=== PATIENT | male | born 1945 | race Caucasian/White ===

== ENCOUNTER 2020-12-27 10:49 | Emergency (ER) | payer OTHER, BC ==
[~2020-12-27] VITALS: Ht 180.3 cm; Wt 83.9 kg
[2020-12-27] MEDS ORDERED: ARICEPT10 M1 PO (10:57)
[2020-12-27] MEDS ORDERED: BUSPIRONE HCL10 MG PO (10:57)
[2020-12-27] MEDS ORDERED: XYZAL5 MG PO (10:57)
[2020-12-27] MEDS ORDERED: MELATONIN3 M1 PO (10:57)
[2020-12-27] MEDS ORDERED: NAMENDA 10 MG T10 MG PO (10:58)
[2020-12-27] MEDS ORDERED: OXYBUTYNIN 5 MG5 M2 PO (10:58)
[2020-12-27] MEDS ORDERED: OLANZAPINE ODT5 MG PO (10:58)
[2020-12-27 11:06] LABS: ABSOLUTE NEUTROPHILS 5.9 thou/uL (1.4-8.2); BASOPHILS 0.5 % (0.0-2.0); EOSINOPHILS 0.5 % (0.0-3.0); HEMATOCRIT 44.1 % (42.0-52.0); HEMOGLOBIN 14.5 gm/dL (14.0-18.0); LYMPHOCYTES 18.6 % (24.0-44.0); MCH 31.6 pg (26.0-34.0); MCHC 32.9 g/dL (28.0-37.0); MCV 96.1 fL (80.0-100.0); MONOCYTES 7.6 % (1.0-8.0); PLATELET COUNT 152 thou/uL (150-400); POLYS 72.8 % (36.0-66.0); RBC 4.59 mil/uL (4.50-6.00); RDW 13.9 % (10.5-14.5); WBC 8.1 thou/uL (4.0-11.0)
[2020-12-27 11:12] LABS: CALCIUM 8.5 mg/dL (8.5-10.1); CREATININE 0.8 mg/dL (0.7-1.3); POTASSIUM 3.9 mmol/L (3.5-5.1)
[2020-12-27 11:19] LABS: ALBUMIN 3.1 g/dL (3.4-5.0); DIRECT BILIRUBIN 0.2 mg/dL (<0.1-0.2); TOTAL BILIRUBIN 0.8 mg/dL (0.2-1.0); TOTAL PROTEIN 6.7 g/dL (6.4-8.2)
[2020-12-27 11:58] LABS: URINE BILIRUBIN NEGATIVE (Negative); URINE BLOOD 1+ (Negative); URINE CLARITY CLEAR; URINE COLOR YELLOW; URINE GLUCOSE-RANDOM* NEGATIVE (Negative); URINE KETONES TRACE (Negative); URINE LEUKOCYTES-REFLEX NEGATIVE (Negative); URINE NITRITE-REFLEX NEGATIVE (Negative); URINE PROTEIN (DIPSTICK) NEGATIVE (Negative); URINE SPECIFIC GRAVITY 1.015 (1.005-1.035)
--- NOTE | 2020-12-27 12:05 | EKG ---
[address] [address] ELECTROCARDIOGRAM REPORT Name: VICKI LINDSAY Room #: [facility].#: [id number] Admission: Attend Phys: Discharge: Date of : 45 Report #: [id number] [facility] ED Test Date: 2020-12-27 Test Time: 11:03:21 Pat Name: VICKI LINDSAY Department: Room: Gender: Hydrology Teacher: cody patterson : 1945 Requested By: Patricia Orozco Order Number: [id number] MD: Raymundo Vázquez Measurements Intervals [place] Rate: 82 P: 53 [place]: 173 QRS: -34 QRSD: 158 T: 21 QT: 431 QTc: 504 Interpretive Statements Sinus rhythm Paired ventricular premature complexes Sinus pause Right bundle branch block No previous ECG available for comparison Electronically Signed On 12-27-2020 12:05:07 CDT by Raymundo Vázquez [email or web address] <ELECTRONICALLY SIGNED> By: Raymundo Vázquez MD, [facility] 12/27/20 1205 1103 1103 Raymundo Vázquez MD, FACC /EPI
[2020-12-27 12:06] LABS: AMP/METHAMP Negative (Negative); BARBITURATES Negative (Negative); BENZODIAZEPINES Negative (Negative); COCAINE Negative (Negative); METHADONE Negative (Negative); OPIATES Negative (Negative); PCP Negative (Negative)
[2020-12-27 12:09] LABS: SQUAMOUS 0-3 Few /LPF (0-3)
[2020-12-27 12:10] LABS: BACTERIA-REFLEX 1-9 Few /HPF (None Seen); CASTS None Seen /LPF (None Seen); CRYSTALS None Seen /LPF (None Seen); URINE RBC 3-10 Few /HPF (NONE SEEN); URINE WBC-REFLEX 0-5 Rare /HPF (0-5)
[2020-12-27 14:49] VITALS: BP 150/80
== END 2020-12-27 17:06 ==
LOC: ER 10:49
PROVIDERS: Emergency Medicine
DX: F91.1 Conduct disorder, childhood-onset type (principal); F03.90 Unspecified dementia, unspecified severity, without behavioral disturbance, psychotic disturbance, mood disturbance, and anxiety; G47.00 Insomnia, unspecified; Z79.899 Other long term (current) drug therapy

== ENCOUNTER 2021-01-06 17:58 | Emergency (ER) | payer OTHER, BC ==
[~2021-01-06] VITALS: Ht 182.9 cm; Wt 77.1 kg
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
[~2021-01-06 17:58] MED LIST: ARICEPT10 M1 PO; BUSPIRONE HCL10 MG PO; MELATONIN3 M1 PO; NAMENDA 10 MG T10 MG PO; OLANZAPINE ODT5 MG PO; OXYBUTYNIN 5 MG5 M2 PO; XYZAL5 MG PO
[2021-01-06] MEDS ORDERED: ZYPREXA 5 MG TAB5 M1 PO (18:04)
[2021-01-06] MEDS ORDERED: OLANZAPINE ODT5 MG PO (18:04)
[2021-01-06 18:56] LABS: ABSOLUTE NEUTROPHILS 6.9 thou/uL (1.4-8.2); BASOPHILS 0.6 % (0.0-2.0); EOSINOPHILS 0.9 % (0.0-3.0); HEMATOCRIT 43.3 % (42.0-52.0); HEMOGLOBIN 14.4 gm/dL (14.0-18.0); LYMPHOCYTES 18.2 % (24.0-44.0); MCHC 33.3 g/dL (28.0-37.0); MCV 96.2 fL (80.0-100.0); MONOCYTES 9.6 % (1.0-8.0); PLATELET COUNT 172 thou/uL (150-400); POLYS 70.7 % (36.0-66.0); WBC 9.7 thou/uL (4.0-11.0)
[2021-01-06 19:08] LABS: ANION GAP 6 mmol/L (7-16); BUN 18 mg/dL (7-18); CALCIUM 8.6 mg/dL (8.5-10.1); CHLORIDE 107 mmol/L (98-107); CO2 27 mmol/L (21-32); GLUCOSE 119 mg/dL (74-106); POTASSIUM 3.7 mmol/L (3.5-5.1); SODIUM 140 mmol/L (136-145)
[2021-01-06 19:16] LABS: ALBUMIN 3.1 g/dL (3.4-5.0); DIRECT BILIRUBIN < 0.1 mg/dL (<0.1-0.2); SGOT 28 U/L (15-37); SGPT 34 U/L (16-63); TOTAL BILIRUBIN 0.4 mg/dL (0.2-1.0); TOTAL PROTEIN 6.7 g/dL (6.4-8.2)
[2021-01-06 20:34] LABS: URINE BILIRUBIN NEGATIVE (Negative); URINE BLOOD TRACE (Negative); URINE CLARITY CLEAR; URINE COLOR YELLOW; URINE GLUCOSE-RANDOM* NEGATIVE (Negative); URINE KETONES NEGATIVE (Negative); URINE LEUKOCYTES-REFLEX NEGATIVE (Negative); URINE NITRITE-REFLEX NEGATIVE (Negative); URINE PROTEIN (DIPSTICK) NEGATIVE (Negative); URINE UROBILINOGEN 0.2 E.U./dl (0.2-1.0)
[2021-01-06 23:07] VITALS: BP 150/91
--- NOTE | 2021-01-08 08:04 | EKG ---
[facility] [place] [address] ELECTROCARDIOGRAM REPORT Name: IONA LINDSAY [id number] Admission: 01/06/21 Attend Phys: Discharge: 01/06/21 Date of : 45 Report #: [id number] [facility] ED Test Date: 2021-01-06 Test Time: 18:14:26 Pat Name: IONA LINDSAY Department: Room: Gender: M Awning Maker: YUMIKO : 1945 Requested By: Renan Ariza Order Number: [id number] MD: Cuauhtemoc Osorio Measurements Intervals [place] Rate: 71 P: 42 [place]: 166 QRS: -29 QRSD: 158 T: -8 QT: 424 QTc: 461 Interpretive Statements Sinus rhythm Multiple premature complexes, vent & supraven Right bundle branch block Compared to ECG 12/27/2020 11:03:21 No significant change was found Electronically Signed On 01-08-2021 8:04:00 CDT by Cuauhtemoc Osorio [email or web address] <ELECTRONICALLY SIGNED> By: Cuauhtemoc Osorio MD, [facility] 01/08/21 08 13 13 Cuauhtemoc Osorio MD, [facility] /EPI
== END 2021-01-06 22:30 | disposition home or self-care (01) ==
LOC: ER 17:58
PROVIDERS: Student in an Organized Health Care Education/Training Program
DX: F03.90 Unspecified dementia, unspecified severity, without behavioral disturbance, psychotic disturbance, mood disturbance, and anxiety (principal); Z20.822 Contact with and (suspected) exposure to COVID-19; Z79.899 Other long term (current) drug therapy

== ENCOUNTER 2021-01-24 09:10 | Emergency (ER) | payer OTHER, BC ==
[~2021-01-24] VITALS: Ht 182.9 cm; Wt 77.1 kg
[~2021-01-24 09:10] MED LIST changes: +ZYPREXA 5 MG TAB5 M1 PO
[2021-01-24] MEDS ORDERED: DIVALPROEX SOD125 MG PO (09:16)
[2021-01-24] MEDS ORDERED: VALPROIC A250 MG/51 PO (09:18)
[2021-01-24] MEDS ORDERED: DESYREL150 MG PO (09:18)
[2021-01-24] MEDS ORDERED: ANTI-GAS180 MG PO (09:18)
[2021-01-24 10:05] LABS: ABSOLUTE NEUTROPHILS 8.8 thou/uL (1.4-8.2); BASOPHILS 0.2 % (0.0-2.0); EOSINOPHILS 1.1 % (0.0-3.0); HEMATOCRIT 40.3 % (42.0-52.0); HEMOGLOBIN 13.4 gm/dL (14.0-18.0); LYMPHOCYTES 9.4 % (24.0-44.0); MCH 31.6 pg (26.0-34.0); MCHC 33.4 g/dL (28.0-37.0); MCV 94.8 fL (80.0-100.0); MONOCYTES 7.3 % (1.0-8.0); PLATELET COUNT 155 thou/uL (150-400); RBC 4.25 mil/uL (4.50-6.00); RDW 13.9 % (10.5-14.5); WBC 10.7 thou/uL (4.0-11.0)
[2021-01-24 10:10] LABS: CALCIUM 8.5 mg/dL (8.5-10.1); CREATININE 0.9 mg/dL (0.7-1.3); POTASSIUM 4.1 mmol/L (3.5-5.1)
[2021-01-24 10:20] LABS: ALBUMIN 2.9 g/dL (3.4-5.0); TOTAL BILIRUBIN 0.8 mg/dL (0.2-1.0); TOTAL PROTEIN 6.5 g/dL (6.4-8.2)
[2021-01-24 13:23] VITALS: BP 134/73
--- NOTE | 2021-01-24 13:23 | EKG ---
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: : 1945 Requested By: Carlo Abdi Order Number: [id number] MD: Raymundo Vázquez Measurements Intervals [place] Rate: 79 P: 66 [place]: 157 QRS: -27 QRSD: 150 T: 29 QT: 419 QTc: 481 Interpretive Statements NSR Right bundle branch block Compared to ECG 01/06/2021 18:14:26 Sinus rhythm no longer present Electronically Signed On 01-24-2021 13:23:37 CDT by Raymundo Vázquez [email or web address] <ELECTRONICALLY SIGNED> By: Raymundo Vázquez MD, [facility] 01/24/21 1323 3 Raymundo Vázquez MD, FACC /EPI
== END 2021-01-24 13:24 | disposition home or self-care (01) ==
LOC: ER 09:10
PROVIDERS: Emergency Medicine
DX: R06.02 Shortness of breath (principal); Z20.822 Contact with and (suspected) exposure to COVID-19; F03.90 Unspecified dementia, unspecified severity, without behavioral disturbance, psychotic disturbance, mood disturbance, and anxiety

== ENCOUNTER 2021-02-16 17:23 | Emergency (ER) | payer OTHER, BC ==
[~2021-02-16] VITALS: Ht 182.9 cm; Wt 79.4 kg
[~2021-02-16 17:23] MED LIST changes: +ANTI-GAS180 MG PO; +DESYREL150 MG PO; +DIVALPROEX SOD125 MG PO; +VALPROIC A250 MG/51 PO
[2021-02-16 18:20] LABS: ABSOLUTE NEUTROPHILS 13.5 thou/uL (1.4-8.2); BASOPHILS 0.4 % (0.0-2.0); EOSINOPHILS 0.1 % (0.0-3.0); HEMATOCRIT 41.7 % (42.0-52.0); HEMOGLOBIN 13.5 gm/dL (14.0-18.0); LYMPHOCYTES 3.2 % (24.0-44.0); MCH 31.7 pg (26.0-34.0); MCHC 32.5 g/dL (28.0-37.0); MCV 97.7 fL (80.0-100.0); MONOCYTES 6.6 % (1.0-8.0); PLATELET COUNT 105 thou/uL (150-400); POLYS 89.7 % (36.0-66.0); RBC 4.27 mil/uL (4.50-6.00); RDW 14.7 % (10.5-14.5); WBC 15.1 thou/uL (4.0-11.0)
[2021-02-16 18:23] LABS: URINE BILIRUBIN NEGATIVE (Negative); URINE BLOOD NEGATIVE (Negative); URINE CLARITY CLEAR; URINE COLOR YELLOW; URINE GLUCOSE-RANDOM* NEGATIVE (Negative); URINE KETONES 2+ (Negative); URINE LEUKOCYTES-REFLEX NEGATIVE (Negative); URINE NITRITE-REFLEX NEGATIVE (Negative); URINE PROTEIN (DIPSTICK) NEGATIVE (Negative); URINE SPECIFIC GRAVITY 1.025 (1.005-1.035)
[2021-02-16 18:26] LABS: CALCIUM 8.4 mg/dL (8.5-10.1); CREATININE 0.8 mg/dL (0.7-1.3)
[2021-02-16 19:45] VITALS: BP 114/70
--- NOTE | 2021-02-17 07:33 | EKG ---
[place] [address] [place] [address] ELECTROCARDIOGRAM REPORT Name: VICKI LINDSAY Room #: DEP LADAN Ruiz#: [id number] Admission: 02/16/21 Attend Phys: Discharge: 02/16/21 Date of : 45 Report #: [id number] [facility] ED Test Date: 2021-02-16 Test Time: 18:09:25 Pat Name: VICKI LINDSAY Department: Room: Gender: M Solderer Torch: cody patterson : 1945 Requested By: Dexter Gould Order Number: [id number] MD: Raymundo Vázquez Measurements Intervals [place] Rate: 76 P: 69 CT: 150 QRS: -37 QRSD: 152 T: 53 QT: 525 QTc: 591 Interpretive Statements Sinus rhythm Right bundle branch block Compared to ECG 01/24/2021 09:14:17 Atrial premature complex(es) now present Electronically Signed On 02-17-2021 7:33:40 CDT by Raymundo Vázquez [email or web address] <ELECTRONICALLY SIGNED> By: Raymundo Vázquez MD, [facility] 02/17/21 0733 180 180 Raymundo Vázquez MD, FACC /EPI
== END 2021-02-16 19:53 | disposition home or self-care (01) ==
LOC: ER 17:23
PROVIDERS: Emergency Medicine
DX: S80.211A Abrasion, right knee, initial encounter (principal); S80.212A Abrasion, left knee, initial encounter; M25.551 Pain in right hip; F02.80 Dementia in other diseases classified elsewhere, unspecified severity, without behavioral disturbance, psychotic disturbance, mood disturbance, and anxiety; Z79.891 Long term (current) use of opiate analgesic; Z79.899 Other long term (current) drug therapy; W19.XXXA Unspecified fall, initial encounter; Y93.89 Activity, other specified; Y92.89 Other specified places as the place of occurrence of the external cause; Y99.8 Other external cause status

== ENCOUNTER → 2021-03-09 | Emergency (ER) | payer OTHER, BC ==
[~2021-03-09] VITALS: Ht 177.8 cm; Wt 72.6 kg
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
[2021-03-09 17:15] LABS: HEMATOCRIT 37.3 % (42.0-52.0); HEMOGLOBIN 12.1 gm/dL (14.0-18.0); MCH 31.9 pg (26.0-34.0); MCHC 32.4 g/dL (28.0-37.0); MCV 98.5 fL (80.0-100.0); RBC 3.78 mil/uL (4.50-6.00); WBC 6.3 thou/uL (4.0-11.0)
[2021-03-09 17:21] LABS: CALCIUM 8.2 mg/dL (8.5-10.1); CREATININE 0.8 mg/dL (0.7-1.3); POTASSIUM 3.7 mmol/L (3.5-5.1)
[2021-03-09 17:27] LABS: ALBUMIN 2.9 g/dL (3.4-5.0); TOTAL BILIRUBIN 0.4 mg/dL (0.2-1.0); TOTAL PROTEIN 6.1 g/dL (6.4-8.2)
[2021-03-09 17:42] LABS: URINE BILIRUBIN NEGATIVE (Negative); URINE BLOOD TRACE (Negative); URINE CLARITY SL CLOUDY; URINE COLOR YELLOW; URINE GLUCOSE-RANDOM* NEGATIVE (Negative); URINE KETONES 1+ (Negative); URINE NITRITE-REFLEX NEGATIVE (Negative); URINE PROTEIN (DIPSTICK) NEGATIVE (Negative); URINE UROBILINOGEN >= 8.0 E.U./dl (0.2-1.0)
[2021-03-09 17:46] LABS: URINE LEUKOCYTES-REFLEX 1+ (Negative)
[2021-03-09 17:49] LABS: AMP/METHAMP Negative (Negative); BARBITURATES Negative (Negative); BENZODIAZEPINES Negative (Negative); COCAINE Negative (Negative); METHADONE Negative (Negative); OPIATES Negative (Negative); PCP Negative (Negative)
[2021-03-09 17:58] LABS: CASTS None Seen /LPF (None Seen); SQUAMOUS 0-3 Few /LPF (0-3); URINE RBC 1-2 Rare /HPF (NONE SEEN); URINE WBC-REFLEX >25 Many /HPF (0-5)
[2021-03-09 17:59] LABS: CRYSTALS None Seen /LPF (None Seen)
--- NOTE | 2021-03-10 11:35 | EKG ---
[place] [address] [facility] [place] [address] ELECTROCARDIOGRAM REPORT Name: VICKI LINDSAY Room #: REG LADAN Ruiz#: [id number] Admission: 03/09/21 Attend Phys: Discharge: Date of : 45 Report #: [id number] 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: JULISA : 1945 Requested By: Telma Colunga Order Number: [id number] MD: Raymundo Vázquez Measurements Intervals [place] Rate: 58 P: 49 [place]: 167 QRS: -20 QRSD: 152 T: 16 QT: 433 QTc: 426 Interpretive Statements Sinus rhythm Ventricular premature complex Right bundle branch block Compared to ECG 02/16/2021 18:09:25 Ventricular premature complex(es) now present Electronically Signed On 03-10-2021 11:34:51 TEXTILE SUPERVISOR by Raymundo Vázquez [email or web address] <ELECTRONICALLY SIGNED> By: Raymundo Vázquez MD, [facility] 03/10/21 1134 1635 1635 Raymundo Vázquez MD, FACC /EPI
[2021-03-10 15:18] VITALS: BP 141/85
== END ==
LOC: ER 16:26
PROVIDERS: Nurse Practitioner Family
DX: N39.0 Urinary tract infection, site not specified (principal); Z20.822 Contact with and (suspected) exposure to COVID-19; F91.1 Conduct disorder, childhood-onset type; F32.9 Major depressive disorder, single episode, unspecified; Z79.899 Other long term (current) drug therapy

== ENCOUNTER 2021-03-10 15:42 | Inpatient (IN) | payer OTHER, BC ==
[~2021-03-10] VITALS: Ht 185.4 cm; Wt 71.2 kg
[2021-03-10 15:30] VITALS: BP 143/94
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
[2021-03-10 20:06] VITALS: BP 143/82
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
[2021-03-11 04:21] LABS: CHOLESTEROL 172 mg/dL (<200); HDL CHOLESTEROL 58 mg/dL (>40); LDL CHOLESTEROL 100 mg/dL (<100); TRIGLYCERIDE 70 mg/dL (<150); VLDL 14 mg/dL (<40)
[2021-03-11 04:27] LABS: SERUM ASSESSMENT Clear
[2021-03-11 09:17] LABS: FOLIC ACID 8.2 ng/mL (8.6-58.9)
--- NOTE | 2021-03-11 10:10 | NUR ---
Nutrition: Folate deficiency as seen by level of 8.2-rec supplement
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
[2021-03-11 19:48] VITALS: BP 99/59
--- NOTE | 2021-03-11 22:28 | NUR ---
PATIENT WAS GIVEN A IM OF HADOL 5MG AND 1 MG OF ATIVAN AT BEGINNING OF SHIFT FOR BECOMING RESTLESS AND NOT FOLLOWING DIRECTION. PATIENT HAS BEEN DROWSY THIS EVENING WITH NO NEGATIVE BEHAVIORS. PATIENT TOOK HS MEDICATIONS CRUSHED IN APPLESAUCE.
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
[2021-03-12 00:06] LABS: GLYCOHEMOGLOBIN (HGB A1C) 5.4 % (4.8-5.6)
[2021-03-12 10:44] VITALS: BP 120/79
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
[2021-03-12 19:42] VITALS: BP 127/62
[2021-03-12 20:20] VITALS: BP 127/62
--- NOTE | 2021-03-12 23:56 | NUR ---
PATIENT SITTING IN GERICHAIR IN DINING AREA UPON ASSUMPTION OF CARE. A/O X1 WITH A BLUNTED AND CALM MOOD. TOLERATED ASSESSMENT WITHOUT AGITATION OR AGGRESSIVE BEHAVIOR. SPEAKS WITH MUTED VOLUME AND FRAGMENTED THOUGHTS. UNABLE TO ASSESS SUICIDAL/ HOMICIDAL/ HALLUCINATIONS SECONDARY TO COGNITIVE STATUS. TOLERATED MEDICATIONS ADMINISTERED IN YOGURT AND ATE THE REMAINDER OF THE YOGURT CONTAINER AFTERWARDS AND DRANK A FEW SIPS OF WATER WITHOUT A STRAW. NO OBJECTIVE SIGNS OF PAIN NOTED. CONTINUE TO MONITOR FOR CHANGES IN CLINICAL STATUS.
[2021-03-13 09:35] VITALS: BP 146/90
--- NOTE | 2021-03-13 12:31 | NUR ---
CARE ASSUMED AT 0700, PATIENT SITTING IN THE DAY ROOM ON A LAURA/CHAIR, ALERT TO SELF ONLY, BREATH SOUND CLEAR,ACTIVE BOWEL SOUND WITH SOFT AND ROUNDED ABDOMEN, SKIN INTACT NO EDEMA NOTED, REG HR, PATIENT WAS CALM AT FIRST AND BECAME AGITAED WHEN MEDICATION WAS GIVEN, HE WOULD NOT TAKE IT AFTER FIRST SPOON, WAITED FOR A FEW MINS AND HE TOOK THE REMAINING MEDS, WOULD NOT EAT MUCH OF HIS MEAL AND DOSE NOT WANT ANY HELP, PATIENT IS NOT ABLE TO VERBALIZE NEEDS, HE AMBULATE ON A LAURA/CHAIR, INCONTINENT OF BLADDER AND BOWEL, NO SI/HI OBSERVED, FALL PRECAUTION IN PLACE, WILL CONTINUE TO MONITOR PATIENT FOR SAFETY.
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
--- NOTE | 2021-03-13 14:20 | NUR ---
03-13-2021--1520--Call from Bindu from [facility] wanting to talk to me about DC planning. I interrupted her and told her my director, Janette Tong was trying to call Iza back. I provided her with Director's number
--- NOTE | 2021-03-13 15:00 | NUR ---
03-13-2021--1500--Call from Shefali ALEXANDER at [facility]. Referred her to my director. My Diector asked me to send some notes to [facility]. Patient has only been here one day and there is not much to send. Sent H&P; Medications; Notes from Dr. Rubalcava; and from hardeep and the Hospitalist.
--- NOTE | 2021-03-13 15:03 | NUR ---
03-13-2021--1500--ADDENDUM--FAXED RECORDS LISTED ABOVE TO THE [facility] ([phone]).
[2021-03-13 19:28] VITALS: BP 98/64
--- NOTE | 2021-03-14 00:41 | NUR ---
At onset of day shift pt was sleeping in leonid chair in day room. Pt recieved IM Haldol in the afternoon on day shift and was somnolent. RN attempted to feed pt his PO meds crushed in applesauce but pt would not wake up enough to safely swallow. Pt recieved 4mg Haldol IM in place of PO scheduled Haldol. PT did wake up and answered some questions. Pt denied pain and stated he was fine. Pt did not answer questions about orientation or psych questions. Pt was transferred to his bed by staff and went to sleep. Oriented only to self. Fall precautions are in place. Will continue to monitor.
[2021-03-14 07:01] VITALS: BP 123/81
--- NOTE | 2021-03-14 07:11 | NUR ---
03-12-2021--1500--Faxes for placement sent to the following [place] homes: [facility]; [facility]; [facility]; [facility]; Arslan Trammell [facility]; Scott Bro [facility]; [facility]; [facility]; [facility]; [facility]; [facility]; [facility]; [facility]; [facility]; [facility]; Nikki Stacy; Malachi Abdi; Bridgette Sahu; [facility]; [facility], and [facility]. No responses at this time. 03-13-2021--3357--Faxes sent to: Jairon Ludwig; GINETTE [facility]; [facility]; [facility]; [facility]; [facility]; and the [facility] in [place], [place]. Will try others on the list today if no responses.
--- NOTE | 2021-03-14 07:23 | NUR ---
03-14-2021--ERROR--This was for a different patient.
--- NOTE | 2021-03-14 07:57 | NUR ---
03-14-2021--6997--ALL THE ABOVE MENTIONED FACILITIES WERE SENT REFERRALS THIS DATE.
--- NOTE | 2021-03-14 08:50 | NUR ---
03-14-2021--844--Call from [facility], [place] ()--[phone]--She wanted to let us know that [facility] has refused to take her back. Attempted to call her back at the above number and she didn't answer. left with my name and number asking she call me back. 03-14-2021--899--Call returned from [facility]. I explained what had happened yesterday that ended up with my Director and [facility] talking. I explained if they (I sent out a packet to [facility]) couldn't find another placement he would be coming back to them. I also told her I had sent out a lot of packets for him today but not any in the immediate area. I explained we are working on finding him a placement and that if she had some place in mind she can let me kmow. Family meeting needs to be sent up and she is available any time on Wednesday. I will speak to Doctor at team meeting this AM and call her back woith a time.
--- NOTE | 2021-03-14 12:56 | NUR ---
PATIENT CARE ASSUMED AT 0700, PATIENT SITTING ON THE LAURA/CHAIR SLEEPING, PATIENT ALERT AND ORIENTED TO SELF, REFUSED MEDICATION AND HALDOL IM WAS GIVEN, PATIENT IS CONFUSED AND WILL REFUSED FOR STAFF TO HELP HIM FEED, PATIENT IS INCONTINENT OF BLADDER AND BOWEL,GET AGITATED AND AGGRESSIVE WHEN BEING CHANGED. BOWEL SOUND ACTIVE WITH SOFT AND ROUNDED ABDOMEN, LUNGS CLEAR, REG HR, SKIN INTACT NO EDEMA NOTED, FALL PRECAUTION IN PLACE. WILL CONTINUE TO MONITOR PATIENT FOR SAFETY AND BEHAVIOR.
--- NOTE | 2021-03-14 14:43 | NUR ---
03-14-2021--1300--Family meeting: Adelaide Schultz (DPOA), daughter Azucena and this worker did a phone conference. Doctor gave an update and provided answers to questions and daughter had. No DC this week will be changing meds and working with patient. Doctor told family he was very demented and challenging with cares. Had a dx of Alzheimers for last four yeas as per daughter. Call to and daughter on Wednesday approx 10 AM. This family is private as per and daughter.
[2021-03-14 20:57] VITALS: BP 126/93
--- NOTE | 2021-03-15 01:00 | NUR ---
At onset of rn shift mgr pt was sleeping in leonid chair in day room. This shift pt was alert and oriented only to self. Pt is unable to engage in meaningful conversation. Pt cannot answer questions appropriately. Pt was compliant with vital signs and took all medications crushed in pudding. Fall precautions are in place. Will continue to monitor.
[2021-03-15 10:52] VITALS: BP 120/73
--- NOTE | 2021-03-15 17:26 | NUR ---
Assumed pt care at 0700. Pt was alert and oriented to person. Assessments completed, vss. Took meds crushed in applesauce, no difficuly noted. Lungs clear, active bowel sound. no sign of si/hi noted. No c/o pain at this time. Ambulates with a Anne Marie chair. Assisted with feeding this shift. Pt is a fall risk, fall precaution in place. Calm and cooperative with care. Z guard paste applied to bottom for redness. At this time pt is in the day room resting. Will continue to monitor.
[2021-03-15 20:20] VITALS: BP 130/84
--- NOTE | 2021-03-16 05:41 | NUR ---
PATIENT AOX1 CONFUSED AND FORGETFUL. PATIENT INCONTIENT THIS SHIFT PERICARE AND BARRIER CREAM APPLIED NEEDED.PATIENT ENCOURAGED FLUIDS.BLADDER SCAN DONE AT 0530, RESIDULE OF 53ML NO CATH DONE AT THIS TIME. FALL PRECAUTION IN PLACE. PATIENT IN BED ASLEEP AT THIS TIME BREATHING REGULAR AND UNLABOURED.
[2021-03-16 10:01] VITALS: BP 135/85
--- NOTE | 2021-03-16 13:42 | NUR ---
Assumed pt care at 0700. Pt was alert and oriented to person. Assessments completed, vss. pt was confused due to Dementia. No sign of hi/si noted. No c/o pain. Took meds crushed in apple sauce, no difficulty noted. Ambulates with a Anne Marie chair. Pt is a max assist with care. Combative and uncooperative with care. Assisted with feeding this shift. Had a small bowel movement. pt was incontinent of bowel and bladder. Pt is a high fall risk, Fall precaution in place. At this time pt is in the day room. Will continue to monitor.
[2021-03-16 19:23] VITALS: BP 105/50
[2021-03-16 19:50] VITALS: BP 105/50
--- NOTE | 2021-03-17 02:19 | NUR ---
PATIENT CARE WAS RESUMED AT 1900. HE WAS IN THE DININIG ROOM SITTING ON THE RECLINER. HE IS ALERT.UNABLE TO VERBALISE HIS CONCERNS. HE IS A MAX ASSIST WITH CARE INCONTINENT OF BOWEL AND BLADER. HE DENIES PAINS/SI/AVH/HI. CREAME APPLIED TO HIS BOTTOCKS AND COCCYX ARE FOR PROTECTION AFTER PERICARE.LUNGS ARE CLEAR , CONTINUE CARE AND MONITOR.
--- NOTE | 2021-03-17 07:06 | NUR ---
PATIENT WAS BADDER SCAN AT 0640 AND 75CC NOTED. HE VOIDED A COUPLE OF TIMES THROGHTOUT THE SHIFT. GLORY CARE WERE PROVIDED.
[2021-03-17 10:41] VITALS: BP 118/75
[2021-03-17 11:21] VITALS: BP 118/75
--- NOTE | 2021-03-17 12:29 | NUR ---
RT Progress Note- Ronni has had little social engagement with the milieu since his admission. Same for therapeutic groups. His cognition status and attention hinder his active participation, however RT staff ensure that he is present for sensory engagement. He has remained quiet and made little social interaction when interacted with 1;1. BILLET ASSEMBLER will continue plan and encourage participation as he tolerates.
--- NOTE | 2021-03-17 12:31 | NUR ---
RESUMMED CARE FROM OVERNIGHT SHIFT THIS AM, PATIENT IN DAY ROOM QUIET. PATIENT ALERT ORIENTED TO SELF ONLY. PATIENT DOES NOT UNDERSTAND ABOUT SI/HI/AH/VH AT PRESENT. 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 PATIENT HAS NOT DISPLAYED ANY BEHAVIORS WILL CONTINUE TO MONITOR PATIENT FOR SAFETY AND BEHAVIORS.
[2021-03-17 19:17] VITALS: BP 92/62
[2021-03-17 20:20] VITALS: BP 160/80
[2021-03-17 20:31] VITALS: BP 160/80
--- NOTE | 2021-03-18 03:09 | NUR ---
PATIENT HAS BEEN SLEEPING IN HIS BED SINCE BEGINNING OF SHIFT AT 1900. PATIENT TOOK HIS MEDS CRUSHED IN ICECREAM. HE HAS SOME DENUDING SPOTS AT COCCYX AND BARRIER CREAM PLACED ON THEM WITH INCONTINENCE CARES. PATIENT HAS NOT SPOKE A WORD TONIGHT AND HAS BEEN RESTING WITH EYES CLOSED MOST OF NIGHT. REPOSITIONING PATIENT PRN FOR COMFORT AND TO KEEP HIM OFF HIS BACK TO PREVENT SKIN BREAKDOWN AT BUTTOCKS. NO SIGNS OF PAIN OR DISCOMFORT. NO HALLUCINATIONS NOTED AND NO SIGNS OF HI/SI. PT'S DIET CHANGED TO MECHANICAL CHOPPED BUT STILL ON THIN LIQUIDS. PATIENT HAS APPEARED CALM AND RELAXED. ROUTINE ROUNDS TO ASSESS SAFETY AND STATUS OF PATIENT. BED IN LOW POSITION AND BED ALARM IS ON.
[2021-03-18 09:51] VITALS: BP 141/109
--- NOTE | 2021-03-18 10:27 | NUR ---
--1000--Call from [facility] ([phone]), Aleja stating he was there before prior to [place]. moved him to get him closer. They will take him back if the is agreeable. Will talk to her in family meeting.
--- NOTE | 2021-03-18 11:36 | NUR ---
03-18-2021--1000--Family meeting violeta Bryson () [phone] and Azucena (daughter) [phone]. CDoctor explained patient choked agaoimn and he is now on pureed food. Told family DC on Wednesday or Wednesday. Azucena stated Wednesday wouldn't be okay as it is the weekend. Also explained [facility] was interested and family refused. Family reports they will go back to [facility]. Director and doctor will have a conference call with [facility] later this date. (Patient needs to have three good days in a row to [place].)
--- NOTE | 2021-03-18 17:45 | NUR ---
Assumed pt care at 0700. Pt was alert and oriented to himself. Assessments completed, vss. lungs clear, active bowel sound. Took meds whole, no difficulty noted. Ambulates with a Anne Marie chair. Calm and cooperative with care. Incontinent of bowel and bladder. Pt was choking on his breakfast. Dr Rubalcava notified. Pt diet was changed to pureed. Pt was assisted with meals. this shift. Pt is a Fall risk. Fall precaution in place for pt. AT this time pt is in the day room. No sign of Hi/si noted. No c/o of pain at this time. Will Continue to monitor
[2021-03-18 20:20] VITALS: BP 139/96
[2021-03-18 20:27] VITALS: BP 139/96
--- NOTE | 2021-03-19 02:56 | NUR ---
PATIENT SAT OUT IN DINING ROOM IN LAURA CHAIR AT A TABLE UNTIL HE WAS ASSISTED TO BED AROUND 2200. PATIENT IS A/0X1. HE DID TRY TO INITIATE CONVERSATION BUT HIS SENTENCES NOT UNDERSTOOD. DISORGANIZED CONVERSATION. PATIENT DID HAVE HIS HS MEDS CRUSHED IN PUDDING AND TOLERATED WELL. HE WAS JUST CHANGED TO A PUREED DIET TODAY. HE WAS ALSO PLACED ON HONEY THICK LIQUIDS. HE DID DRINK HAVE A CUP OF HONEY THICK ORANGE JUICE. PATIENT HAS SOME DENUDING SKIN AROUND COCCYX AREA AND BARRIER CREAM IS BEING PLACED DURING INCONTINENCE CARES AND PRN CHECKS. PATIENT HAS BEEN RELAXED. NOTICED HIS UPPER EXTREMITIES WITH MORE TREMORS THIS EVENING HE WAS GETTING MORE TIRED. TREMORS NOT NOTICEABLE HE IS SLEEPING. PATIENT IS RESTING IN BED WITH BED ALARM ON AND BED IN LOW POSITION. REPOSITIONING PATIENT OFF HIS BACK HE ALLOWS. HE IS ABLE TO REPOSITION HIMSELF. NO SIGNS OF SI/HI/AVH OR PAIN THIS EVENING. NO BEHAVIORS. HE HAS BEEN CALM AND COOPERATIVE. CONTINUING TO MONITOR.
[2021-03-19 10:25] VITALS: BP 109/90
[2021-03-19 11:33] VITALS: BP 138/82
--- NOTE | 2021-03-19 12:26 | NUR ---
RESUMMED CARE FROM OVERNIGHT SHIFT THIS AM, PATIENT SITTING IN DAY ROOM QUIET. PATIENT ATE BREAKFAST TOOK MEDICATION CRUSHED IN OATMEAL; PATIENT ALERT TO SELF ONLY. PATIENT UNABLE TO TELL ME ABOUT SI/HI/AH/VH DUE TO COGNITIVE DO. PATIENTS ABDOMEN SOFT BOWEL SOUNDS PRESENT, PATIENTS LUNGS CLEAR. PATIENT HAS NO BEHAVIORS PATIENT CALM COOPERATIVE CONFUSED AND FORGETFUL. WILL CONTINUE TO MONITOR PATIENT FOR SAFETY AND BEHAVIORS.
--- NOTE | 2021-03-19 15:40 | NUR ---
Spoke with Jalen - [phone] - Burn Table Operator for the facility. D/C is Wednesday - agreed that facility will place patient in their AL with 24 hour care provided with family. Dr. Rubalcava in agreement with plan and was on the call with me. Short to work with facility to arrange discharge, transportation, etc.
[2021-03-19 19:15] VITALS: BP 135/60
[2021-03-19 21:45] VITALS: BP 135/60
--- NOTE | 2021-03-19 21:52 | NUR ---
Assumed care from day shift at 1900. Client was bladder scanned, and 400 ml urine was voided during this time via straight catheter after scan. Client presented disoriented x 4 when asked daily questions, and could not voice name, place, date, or year. Client did not answer to questions of anxiety, and depression, visual or audio hallucinations, or si/hi intent, but did not appear to be in any distress during assessment. Client laid in bed resting, with no grimace or other facial expression present, and did not appear to be in pain- nonverbal pain scale was used to determine this as client did not any prompt. Client took his medications crushed in thickened applesauce, and then ate 1/2 applesauce container for snack. Lung sounds clear; bowel sounds present. Client was repositioned with pillow behind head, and heels offloaded. Last noted BM 03/18. No further concerns during this time.
--- NOTE | 2021-03-20 06:16 | NUR ---
Asusmed pt's care at about midnight. Pt was in his bed, sleeping. Fall precaution in place. Reg HR. No s/sx of distress noted. Bruises noted to skin. Pt slept well this shift. Incotinent of bladder. Currently awake and in the dayroom. Visible body tremors. Nursing to continue to monitor.
--- NOTE | 2021-03-20 08:03 | NUR ---
03-20-2021--799--Call to the [place]. Asked for DON or Admissions. They said to call back at 9:00.
[2021-03-20 09:56] VITALS: BP 123/80
--- NOTE | 2021-03-20 12:04 | NUR ---
OT RECEIVED ORDERS FOR EVAL AND TREAT. SPOKE WITH DR. CLOUD, [facility] PLAN IN PLACE FOR PT. TO D/C WEDNESDAY WITH 23/11 CARE. D/C'S OT ORDERS PT. IS FUNCTIONING AT BASELINE AND OT ASSESSMENT IS NOT INDICATED. OT WILL D/C.
--- NOTE | 2021-03-20 12:17 | NUR ---
03-20-2021--1215--ZOOM meeting set up for patient for [facility] at 3:00 PM. Hospice worker called me wi three NH that need updates. [facility]; [facility]. Faxed this weeks updates to them and to the [facility].
--- NOTE | 2021-03-20 12:28 | NUR ---
PATIENT CARE ASSUMED AT 0700, PATIENT IS ALERT AND ORIENTED TO SELF, CONFUSED, TOOK MEDICATION CRUSHED WITH PUDDING, LUNGS CLEAR, ACTIVE BOWEL SOUND WITH SOFT ABDOMEN, NO EDEMA NOTED, PATIENT IS A MAX ASSIST, INCONTINENT OF BOWEL AND BLADDED, FALL PRECAUTION IN PLACE, WILL CONTINUE TO MONITOR PATIENT FOR SAFETY AND BEHAVIOR
--- NOTE | 2021-03-20 15:10 | NUR ---
03-20-2021--1510--Zoom meeting with patient and his placement. He will DC Wednesday at 1:00 PM and [facility] will provide transportation. Nurse manager photo had to be called to the room to explain to person from the facility that we would not be putting his bottom on zoom for them to see nor would we be sending them any photos. Nurse manager photo told Wednesday there would be a nurse to nurse call. [facility] to transport on Wednesday03-24-2021 @ 1:00 PM.
--- NOTE | 2021-03-20 15:25 | NUR ---
PATIENT CARE ASSUMED AT 0700, PATIENT SITTING IN THE DAY ROOM ALERT TO SELF, PATIENT TOOK MEDICATION CRUCHED WITH PUDDING, CALM TODAY WITH CARE, LESS AGITATED, HAD A ZOOM MEETING TODAY WITH THE PROGRAM SCHEDULE CLERK AND A STAFF FROM THE FACILITY WHERE HE CAME FROM AND IT WENT WELL. ASSESSMENT COMPLETED WITH CLEAR LUNGS, ACTIVE BOWEL SOUND WITH SOFT ABDOMEN, REG HR, SKIN INTACT, NO EDEMA NOTED, PATIENT AMBULATE WITH A WALKER, FALL PRECAUTION IN PLACE, WILL CONTINUE TO MONITOR PATIENT FOR SAFETY AND BEHAVIOR.
[2021-03-20 20:06] VITALS: BP 133/96
[2021-03-20 23:12] VITALS: BP 133/96
--- NOTE | 2021-03-21 00:19 | NUR ---
Assumed care at 1630. Pt was in activity area in [facility]. Pt presented as fussy and flat affect, not wanting to speak to staff. Part of meal was eaten at this time, and pt was taken to room to rest from stimuli. Upon assessment, pt was unable to voice name, date, situation, and place. Pt was unable to voice depression and anxiety, or suicidal and homicidal intent. Pt stared at staff, and was restless as he was in bed. Staff gave pt his medication crushed in yogurt. Lung sounds clear and bowel sounds present. Pt voiced no complaints, though was restless. As pt was presenting as restless and his brief was dry apart from a scant amount of feces, pt was bladder scanned per q6 protocol. 431 cc of urine was found. Pt was straight catheterized at this time, and 415 ml of urine was voided. After cathing, pt became less restless, and was able to stay in bed without significant movement. Brief was changed during this time, as well as underpad. New topsheet added, and pt head placed on pillow, slightly elevated. Pt checked up again by nursing several times since catheter, and has been asleep in his room with even respirations. Pt currently in bed asleep. No current concerns.
[2021-03-21 09:31] VITALS: BP 123/69
--- NOTE | 2021-03-21 11:25 | NUR ---
PATIENT CARE ASSUMED AT 0700, PATIENT IN BED SLEEPING, GOT HIM UP FOR BREAKFAST AND PATIENT REFUSED TO EAT, HE TOOK MEDICATION CRUSHED WITH PUDDING, ALERT TO SELF, LUNGS CLEAR, ACTIVE BOWEL SOUND WITH SOFT ABDOMEN, HR RE-CHECKED 96, NO EDEMA NOTED, PATIENT GET AGITATED WHEN STAFF TRY TO HELP HIM CHANGE OR FEED, PATIENT IS INCOINTINENT OF BOWEL AND BLADDER, AMBULATE ON LAURA/CHAIR, NO SI/HI OBSERVED, FALL PRECAUTION IN PLACE. WILL CONTINUE TO MONITOR PATIENT FOR SAFETY AND BEHAVIOR.
--- NOTE | 2021-03-21 17:11 | NUR ---
PATIENT WET TWO BRIEFS ON THIS SHIFT, BLADDER SCAN WAS NOT DONE
[2021-03-21 19:59] VITALS: BP 107/70
--- NOTE | 2021-03-21 23:13 | NUR ---
At onset of shift pt was resting in bed sleeping but arrousable. This shift pt was drowsy and only oriented to self. Pt spent the evening resting in bed. Pt did take his medication crushed in pudding, but would swing his arm at nurse pushing nurse's arm away. Pt also swung his arm at RN while RN attempted to auscultate his abdomen and heart. Pt did not answer questions and would not converse with RN or make eye contact. Pt was cooperative with vital signs. Fall precautions are in place. Will continue to monitor.
[2021-03-22 10:16] VITALS: BP 115/69
--- NOTE | 2021-03-22 10:54 | NUR ---
ASSISTED TO TOILET AFTER BREAKFAST-REQUIRES ASSIST OF THREE STAFF TO PROVIDE INCONTINENT CARE IS RESISITVE WITH ALLOWING PANTS TO BE PULLED DOWN AND PERINEAL AREA CLEANSED-WILL GRAB ONTO STAFF AND REFUSE TO LET GO OR GRAB ONTO BRIEF AND REFUSE TO LET IT GO-ANGRY FACIAL EXPRESSION-TEETH TIGHTLY CLENCHED-RAISED ARM IF TO STRIKE STAFF WHEN COCYX BEING CLEANSED-IS NOTED TO HAVE WHITE SCALEY PATCH APPROX 1/4 INCH THICK TO MIDLINE COCYX-SUPERFICIAL AREAS OF EXCORIATION APPROX SIZE OF PINKEY FINGER TO LOWER LEFT PERIPHERY OF SCALING AND ON UPPER RIGHT OF SCALING. NO DRAINAGE NOTED-AREA CLEANSED WITH WOUND SALES AGENT TRADING STAMPS,BARRIER CREAM APPLIED AND ROHO PAD PLACED IN GERICHAIR-WILL PLAN TO ATTEMPT LYING IN BED THIS PM IF COOPERATIVE.WILL ASK HOT TAMALE WORKER FOR WOUND CARE CONSULT
--- NOTE | 2021-03-22 17:30 | NUR ---
DID VOID MODERATE AMOUNT IN BRIEF THIS PM-TOILETED AMD INCONTINENT CARE PROVIDED Q 2-3 HOURS AND CONTINES TO BE RESISITVE REQUIRING ASSIST OF THREE STAFF-DURING SOME TRANSFERS TO COMMODE WILL STAND WITH ASSIST OF TWO AND HOLD O TO ROLLER WALKER-SOME TRANSFERS WILL REFUSE TO STAND AND GRAB HOLD OF WALKER FROM SITTING POSITION AND REFUSE TO LET GO-THROWING WALKER TO FLOOR=AMGRY TENSE FACIAL EXPRESSION,TEETH CLENCHED BUT OFFERS NO RESPONSE WHEN ASKED WHAT WAS MAKING HIM ANGRY-DID LIE DOWN ON BED ON LEFT SIDE FOR APPROX 1.5 HOURS PRIOR TO SUPPER
[2021-03-22 19:54] VITALS: BP 114/89
--- NOTE | 2021-03-23 00:23 | NUR ---
At onset of shift pt was resting in bed awake. This shift pt was alert and disoriented x4. Pt was mostly nonverbal and connot follow directions. Pt spoke to RN once, but voice was very soft and words were unintelligable. Pt was turned from side to side throughout the night, due to wounds on buttocks. Pt had a very wet brief at 0024. RN decided to remove brief, apply z-guarde paste and leave pt open to air. Throughout the night pt will remove all pillows and blankets and drop them on the floor. Bedding was reapplied throughout the night. Pt was cooperative with vital signs and medications. Pt did not swing at RN this shift. Pt unable to answer assessment questions. Affect is flat. Pt will occassionally make eye contact and hold RN's hands. Fall precautions are in place. Will continue to monitor.
[2021-03-23 09:50] VITALS: BP 134/82
[2021-03-23 11:50] VITALS: BP 134/82
--- NOTE | 2021-03-23 12:42 | NUR ---
RESUMMED CARE FROM OVERNIGHT SHIFT THIS AM, PATIENT IN DAY ROOM SITTING QUIET. PATIENT ATE SOME BREAKFAST TOOK MEDICATION CRUSHED IN PUDDING. PATIENT ALERT TO SELF ONLY; PATIENT UNABLE TO TELL ME ABOUT SI/HI/AH/VH AT PRESENT. PATIENT IS DEMENTED PATIENTS ABDOMEN SOFT BOWEL SOUNDS PRESENT; PATIENTS LUNGS CLEAR. PATIENT IS CALM COOPERATIVE CONFUSED AND FORGETFUL WILL CONTINUE TO MONITOR PATIENT FOR SAFETY AND BEHAVIORS.
--- NOTE | 2021-03-23 23:48 | NUR ---
At onset of shift pt was resting in bed awake. This shift pt was alert with flat affect. Pt is total care. Pt was mostly nonverbal. When RN asked pt if he was feeling okay pt responded "yeah." Pt made some eye contact with RN and was cooperative with cares. Pt took his medication crushed in pudding and was cooperative with vital signs. RN cleaned up pt's face. Pt was positioned on his side and turned throughout the night to relieve pressure on his coccyx. Z-guard paste was applied inbetween thighs. Dressing on coccyx and right big toe are dry and intact. Fall precautions are in place. Will continue to monitor.
[2021-03-24 08:00] VITALS: BP 146/116
[2021-03-24] MEDS ORDERED: DEPAKOTE SPRIN125 MG PO (09:30)
[2021-03-24] MEDS ORDERED: FOLIC ACID1 MG PO (09:31)
[2021-03-24] MEDS ORDERED: OLANZAPINE ODT5 MG SUBLING (09:31)
--- NOTE | 2021-03-24 12:20 | NUR ---
Had several VM's on my phone during Tx Team and other meetings. Messages were from Billie from [facility] wanting us to halt current discharge plans and hold patient tomorrow so he can be admitted to another facility tomorrow. checked with clinical staff before I called Billie back to let her know that that will not happen as we have already agreed to send the patient back to [facility]. Guillermo voiced understanding. Patient set for discharge this afternoon at 1300.
--- NOTE | 2021-03-24 15:27 | NUR ---
DISCHARGE INSTRUCTIONS REVIEWED WITH PT DPOA-JEFF LINDSAY VIA PHONE-SHE STATES UNDERSTANDING AND DENIES QUESTIONS OR CONCERNS RE DC MEDS OR FU REFERRALLS ETC. IS MILDLY SOMULENT-DOZING INTERTMITENTLY IN GERICHAIR IN DAYROOM BUT EASILY ROUSABLE TO VERBAL STIMULI.REPORT CALLED TO [facility] NURSING STAFF AND PT ASSISTED INTO WC ACCOMPMIED BY [facility] TRANSPORTATION STAFF AT 1410 AND BROUGHT TO VAN ACCOMPNIED BY NURSING STAFF-PERSONAL BELONGINGS SENT WITH PT. DID RECEICE CALL AT 1520 FROM LT FACILITY INDICATING THAT PT GLASSES WERE MISSING-STAFF CURRNETLY SEARCHING UNIT AND CALL FORWARDED TO [facility],
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
== END 2021-03-24 14:13 | DRG 57 ==
LOC: SBH 15:42
PROVIDERS: ADMIT Psychiatry & Neurology Psychiatry; ATTEND Psychiatry & Neurology Psychiatry
DX: G30.9 Alzheimer's disease, unspecified (principal); F02.81 Dementia in other diseases classified elsewhere, unspecified severity, with behavioral disturbance; E44.0 Moderate protein-calorie malnutrition; N39.0 Urinary tract infection, site not specified; R13.10 Dysphagia, unspecified; Z20.822 Contact with and (suspected) exposure to COVID-19; G47.00 Insomnia, unspecified; F01.50 Vascular dementia, unspecified severity, without behavioral disturbance, psychotic disturbance, mood disturbance, and anxiety; Z66 Do not resuscitate; B96.89 Other specified bacterial agents as the cause of diseases classified elsewhere; R39.15 Urgency of urination; Z91.013 Allergy to seafood; Z68.20 Body mass index [BMI] 20.0-20.9, adult; Z79.899 Other long term (current) drug therapy; Z23 Encounter for immunization
CPT/HCPCS: 10880